=== PATIENT | male | born 1960 | race Caucasian/White ===

== ENCOUNTER 2017-04-07 16:10 | Observation (INO) | payer OTHER ==
[~2017-04-07] VITALS: Ht 190.5 cm; Wt 139.3 kg
--- NOTE | ~2017-04-07 | ECH ---
Transthoracic Echocardiography Report (TTE) Demographics Patient Name LYUDMILA NORMAN Date of Study 04/08/2017 Patient Number [id number] Visit Number [id number] Date of 1960 Room Number 424 Accession Number [id number] Gender Male Age 56 year(s) Referring Tim Richardson MD Heavy Threader Lnea Jorgensen Physician RDCS Physician Interpreting Kat Machado MD Support Clerk Physician Supervising Ordering Physician Tim Richardson MD, MD/P Nurse Stress Routing Machine Operator Conclusions Summary Technically difficult exam. The estimated left ventricular ejection fraction is 50-55%. Diastolic assessment reveals Grade I diastolic dysfunction. The left atrium is severely dilated by LA volume index measurement. Informed consent was obtained, bubble study was done, there is no evidence for a PFO or ASD. The right atrium is moderately dilated. The patient is known to have a 33mm St. Carlos A mechanical mitral valve. Mean gradient is 4 mmHG. Trivial mitral regurgitation by color Doppler. There is mild aortic regurgitation by color Doppler. Trivial tricuspid regurgitation by color Doppler. Normal pulmonary pressures. Procedure Type of Study TTE procedure:Echo Complete SF. Procedure Date Date: 04/08/2017 Start: 10:51 AM Technical Quality: Fair due to body habitus. Indications:CVA, paroxysmal a-fib, Hypertension and History of mitral valve replacement. Appropriate Use Criteria: 9 Height: 75 inches Weight: 311 pounds BSA: 2.65 m Rhythm: NSR HR: 78 bpm BP: 128/73 mmHg M-Mode/2D Measurements LV Diastolic Dimension: 5.62 cm LV Systolic Dimension: 4.46 cm LV Septum Diastolic: 0.86 cm LV PW Diastolic: 0.93 cm AO Root Dimension: 3.61 cm Cardiac Output: 3.81 l/min LA Dimension: 5.51 cm Cardiac Index: 1.44 l/min*m RV Diastolic Dimension: 4.42 cm LA volume index: 52 ml/m LVOT: 2.02 cm LVOT VTI: 15.26 cm RV Base: 4 cm LV Stroke volume: 48.88 ml RV Mid: 3.5 cm LV Stroke volume index: 18.45 ml/m TAPSE: 3 cm TDI-S': 12 cm/s Doppler Measurements AV Peak Velocity: 0.9 m/s MV Peak E-Wave: 1.24 m/s AV Peak Gradient: 3.24 mmHg MV Peak A-Wave: 1.37 m/s AV Mean Gradient: 1.93 mmHg MV E/A Ratio: 0.9 LVOT Peak Velocity: 0.79 m/s MV P1/2t: 94.5 msec AV Area (Continuity):2.44 cm AV P1/2t: 483.6 msec TR Velocity:2.53 m/s MV Deceleration Time: 306.7 msec TR Gradient:25.6 mmHg MV Area (PHT): 2.33 cm Estimated RAP:3 mmHg PV Peak Velocity: 1.16 m/s Estimated RVSP: 29 mmHg PV Peak Gradient: 5.39 mmHg Estimated PASP: 28.6 mmHg RA Area: 26.81 cm Findings Left Ventricle Normal left ventricle size and function. Diastolic assessment reveals Grade I diastolic dysfunction. Right Ventricle Normal right ventricle structure and function. Left Atrium The left atrium is severely dilated by LA volume index measurement. Informed consent was obtained, bubble study was done, there is no evidence for a PFO or ASD. Right Atrium The right atrium is moderately dilated. Mitral Valve The patient is known to have a 33mm St. Carlos A mechanical mitral valve. Mean gradient is 4 mmHG. Trivial mitral regurgitation by color Doppler. Aortic Valve The aortic valve was not well imaged. There is mild aortic regurgitation by color Doppler. Tricuspid Valve Normal tricuspid valve structure and function. Trivial tricuspid regurgitation by color Doppler. Normal pulmonary pressures. Pulmonic Valve The pulmonic valve is not well visualized. Pericardial Effusion No evidence of pericardial effusion. Miscellaneous Visualized portions of the aortic root and ascending aorta appear normal in size. Pleural Effusion No evidence of pleural effusion. Signature
--- NOTE | 2017-04-10 07:57 | HP ---
ADMIT: 04/07/2017 RM/LOC: 424 [facility] MR#: [id number] [address] [place], [place] [address] IKE NORMAN [address] [place] [address] History and Physical SEX: M AGE: 56 : 1960 DATE OF SERVICE: 04/07/2017 CHIEF COMPLAINT: Left arm weakness. HISTORY OF PRESENT ILLNESS: Ike is a 56-year-old male with complicated cardiac history. He has a history of paroxysmal atrial fibrillation, previous history of repair of a PFO with appendage removal and eventually had a mitral valve replacement with mechanical valve. He is on chronic Coumadin therapy for this. He is not too compliant in coming and he obviously does not get his INR checked too regularly. His goal INR is 2.5 to 3.5. His INR today in the emergency room was subtherapeutic at 1.89. Ike presented to the office today at 1500 hours with a 1 hour history of left arm weakness. Brief evaluation in the office did reveal left arm weakness with left arm drift and he was immediately transferred from the office to the emergency room. He underwent CAT scan in the emergency room after being evaluated by Dr. Barraza. CAT scan did not show any acute bleed or any changes. Dr. Ortiz, Neurology was kind enough to see him and felt that he had a right brain lacunar infarct. With his INR being subtherapeutic at 1.89, he is being admitted to hospital at this time for Lovenox subcu until his INR is therapeutic. Ike states he has been taking his medication regularly. He initially noticed when he sat down at his computer at work, tried to use his left arm to reach over and get the computer mouse and his left arm would not work. He also felt faint headache at that time. He also had some left leg weakness. The left leg weakness and headache went away but when he came in the office, still had left arm weakness. PAST MEDICAL HISTORY: As noted above. He has a history of paroxysmal atrial fibrillation with atrial appendage removal and mechanical mitral valve placement along with history of hypertension, hyperlipidemia, gout, and gastritis. He has had a remote history of appendectomy. ALLERGIES: NONE. MEDICATIONS: 1. Atorvastatin 20 mg at bedtime. 2. Allopurinol 300 mg daily. 3. Metoprolol 75 mg p.o. daily. 4. Warfarin 5 mg 4 days a week, 7.5 mg 3 days a week. 5. Lasix 20 mg p.o. daily. 6. Omeprazole 20 mg daily. 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 He is . Does not use tobacco products. He rarely drinks alcohol. FAMILY HISTORY: Positive for arthritis, asthma, and COPD. REVIEW OF SYSTEMS: Negative other than noted above. ADMIT: 04/07/2017 RM/LOC: 424 [facility] MR#: [id number] [address] [place] [id number] IKE NORMAN [facility] [place] [address] History and Physical SEX: M AGE: 56 : 1960 PHYSICAL EXAM: GENERAL: A 56-year-old male, who is alert, cooperative, and oriented x3. VITAL SIGNS: Stable. BP is 120/70, heart rate is 70 and regular, respiratory rate 22, and temp 98.4. HEENT: Eyes, PERRLA. EOMs intact. TMs not seen. Throat is moist, not inflamed. NECK: Supple. Carotid pulses +2. No bruits are heard. LUNGS: Clear to auscultation. HEART: Regular rate, with clicking present and grade 2/6 systolic murmur. ABDOMEN: Obese. No organomegaly or tenderness. EXTREMITIES: No clubbing, cyanosis, or edema. DIAGNOSTIC IMPRESSION: 1. Right brain cerebrovascular accident with left arm weakness, probable embolic or ischemic. 2. History of PAF. 3. History of mechanical mitral valve on Coumadin therapy with subtherapeutic INR. 4. Hypertension. 5. Obesity. 6. Dyslipidemia. 7. History of gout. PLAN: Patient admitted at this time for PCU telemetry. We will place him on Lovenox full dose until his INR is therapeutic. Neurology consult. Chico Dumont MD/ elsie JOB #: [id number] CC: Chico Dumont, Attending Physician Chico Dumont, Family Physician
[2017-04-10] MEDS ORDERED: ATORVASTATIN CA40 MG PO (16:39)
[2017-04-10] MEDS ORDERED: COUMADIN7.5 MG PO (16:40)
[2017-04-10] MEDS ORDERED: PRILOSEC DPS20 MG PO (16:40)
[2017-04-10] MEDS ORDERED: TOPROL XL DPS25 MG PO (16:40)
[2017-04-10] MEDS ORDERED: ZYLOPRIM-DPS300 MG PO (16:40)
[2017-04-10] MEDS ORDERED: LASIX DPS20 MG PO (16:40)
[2017-04-10] MEDS ORDERED: ASPIRIN EC81 MG PO (16:41)
[2017-04-10] MEDS ORDERED: LOVENOX DP120 MG/0.8 SQ (16:41)
[2017-04-10] MEDS ORDERED: TYLENOL DPS325 MG PO (16:42)
--- NOTE | 2017-04-16 15:59 | CO ---
ADMIT: 04/07/2017 RM/LOC: 424 [facility] MR#: [id number] [address] [place], [place] [address] LYUDMILA NORMAN [address] [place] [address] Consultation SEX: M AGE: 56 : 1960 DATE OF CONSULTATION: 04/07/2017 ATTENDING PHYSICIAN: Chico Dumont CONSULTING PHYSICIAN: Manuel Ortiz MD REASON FOR CONSULTATION: Left-sided weakness. HISTORY OF PRESENT ILLNESS: The patient is a 56-year-old gentleman with past medical history as below and mainly of mechanical valve on chronic anticoagulation with Coumadin who developed left-sided weakness including arm and leg at around 1529 hours. The leg weakness improved somewhat, but the left upper extremity is weak and the movements are discoordinated. Therefore, he presented to [facility] for [facility] evaluation. The stroke alert was called. However, the patient does not qualify for tPA secondary to his INR being 1.89 while on Coumadin. PAST MEDICAL HISTORY: Significant for history of mechanical valve, high cholesterol, hypertension, gout, and GERD. ALLERGIES: NONE. MEDICATIONS: On outpatient basis include: 1. Atorvastatin 20 mg daily. 2. Allopurinol. 3. Metoprolol. 4. Coumadin. 5. Furosemide. 6. Omeprazole. 7. Baby aspirin. FAMILY HISTORY: Noncontributory to current presentation. REVIEW OF SYSTEMS: All systems reviewed, negative except as per HPI. PHYSICAL EXAMINATION: VITAL SIGNS: Blood pressure 184/109, heart rate 92, respirations 20, temperature 98.6, saturation 96% on room air. GENERAL: He appears to be in no acute discomfort. HEAD: Normocephalic. NECK: Supple. CHEST: Some respiratory wheezes noted. CARDIOVASCULAR: Regular rate. ABDOMEN: Nondistended. EXTREMITIES: No clubbing or cyanosis. NEUROLOGICAL EXAM: The patient is awake, alert, appropriately oriented. There is no speech or language deficits. Memory is intact. He is euthymic. Affect is congruent with mood. Cranial nerves; visual laura are intact. Pupils are equal and reactive. Extraocular muscles are intact. Facial ADMIT: 04/07/2017 RM/LOC: 424 [facility] MR#: [id number] [address] [facility] [address] [place], [place] [address] LYUDMILA NORMAN [address] [place] [address] Consultation SEX: M AGE: 56 : 1960 sensation is normal. Face is symmetric. Hearing to voice is normal. Uvula midline. Palate is symmetric. Shoulder shrug symmetric. Tongue midline, fairly moveable. Motor examination reveals left upper extremity drift, reduced fine motor movements. Tone is mildly reduced. Left lower extremity very subtle drift only. Sensory examination to touch, nonlateralizing. Reflexes brisk, symmetric with no pathological reflexes observed. Babinski is flexor response. Coordination, [id number] reveals ataxia on left side. IMAGING: CT of the head reviewed in person, showed some age indeterminate hypodensities on left nonsymptomatic side of the brain within the basal ganglia. Right side, no pathology noted. LABS: INR 1.89. White count 10.4, hemoglobin 15.6, and platelets 261. BMP, so far unremarkable. ASSESSMENT: Left ataxic hemiparesis. Suspect subcortical lacunar ischemic stroke in the setting of patient with mechanical valve and subtherapeutic INR. PLAN: MRI can wait till tomorrow. We need to first find out if his mechanical valve is compatible with MRI. He cannot receive tPA secondary to INR being above 1.7 at this time. I recommend to bridge with full-dose Lovenox until INR normalizes. We will do additional stroke workup focused on small vessel strokes. Thank you very much for this interesting consultation. Manuel Ortiz MD/ elsie JOB #: [id number] CC: Chico Dumont, Attending Physician Chico Dumont, Family Physician
--- NOTE | 2017-04-26 15:51 | ER ---
ADMIT: 04/07/2017 RM/LOC: ER [facility] MR#: [id number] [address] [facility] [address] [place], [place] [address] LYUDMILA NORMAN [address] [place] [address] Emergency Room Report SEX: M AGE: 56 : 1960 DATE: 04/07/2017 This 56-year-old gentleman who went to his primary care Dr. Dumont today with weakness of the left upper extremity, about hour's onset in duration, Dr. Dumont came to the Emergency Department for further evaluation. 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 Again he says about an hour duration. He did have a mild headache, described it at 0.5/10. He is able to move his left upper extremity. Notes that it is exceedingly weak. Denies any other neurologic problems. Denies any other problems. He has had similar symptoms in the distant past. REVIEW OF SYSTEMS: Essentially negative. PAST HISTORY: Hypertension. He does have a mechanical valve and is anticoagulated with Coumadin because of the mechanical valve. SOCIAL HISTORY: He does not smoke. Occasional alcohol use. PHYSICAL EXAMINATION: GENERAL: Revealed a 56-year-old gentleman. Alert, appropriate, and cooperative. Cranial nerves II through XII were intact. He does have an abnormal [id number] test with the left upper extremity and mild weakness in the left upper extremity, approximately 4/5 as compared to the right. LUNGS: Clear to auscultation. CARDIOVASCULAR: 3/6 systolic ejection click. Regular rate and rhythm. ABDOMEN: Obese, soft, and nontender. EXTREMITIES: Unremarkable. Stroke protocol was initiated. CT scan of the head was negative for acute findings. PERTINENT LABS: White count of 10.4. Electrolytes were normal. His INR is 1.89. I did speak with Dr. Dumont and then consulted Dr. Ortiz. Dr. Ortiz saw the patient in the Emergency Department, felt this was classic for small lacunar infarct. Patient was subsequently admitted with diagnosis of CVA. He was not a tPA candidate secondary to his warfarin use and INR greater than 1.7. Cuba Barraza MD/ elsie JOB #: [id number] CC: Cuba Barraza MD, Attending Physician Chico Dumont MD, Family Physician
== END 2017-04-09 11:03 | disposition home or self-care (01) ==
LOC: ER 16:10 → 4PCU 17:30
PROVIDERS: ADMIT Family Medicine
DX: I63.9 Cerebral infarction, unspecified (principal); I48.0 Paroxysmal atrial fibrillation; I10 Essential (primary) hypertension; E78.5 Hyperlipidemia, unspecified; M10.9 Gout, unspecified; I08.3 Combined rheumatic disorders of mitral, aortic and tricuspid valves; K21.9 Gastro-esophageal reflux disease without esophagitis; J98.11 Atelectasis; E66.9 Obesity, unspecified; Z68.38 Body mass index [BMI] 38.0-38.9, adult; Z79.899 Other long term (current) drug therapy; Z79.01 Long term (current) use of anticoagulants; Z95.2 Presence of prosthetic heart valve; Z90.49 Acquired absence of other specified parts of digestive tract